=== PATIENT | female | born 1990 | race Hispanic/Latino ===

== ENCOUNTER 2023-03-09 19:01 | Emergency (ER) | payer MEDICAID ==
[~2023-03-09] VITALS: Ht 160 cm; Wt 87.5 kg
[2023-03-09] MEDS ORDERED: ASPIRIN 325MG TAB PO ONE (19:30)
[2023-03-09 19:36] LABS: ABG BASE EXCESS -3.4 mmol/L (-2.0-3.0); ABG HCO3 19.8 mmol/L (21.0-28.0); ABG OXYGEN SATURATION 98.3 % (95.0-99.0); ABG PCO2 31 mmHg (32-45); ABG PH 7.429 (7.350-7.450); CARBON MONOXIDE 0.8; HHb 1.7; PO2, ARTERIAL BG 113.8 mmHg (83.0-108.0); VENT MODE, BG ROOM AIR (ROOM AIR)
[2023-03-09 19:44] LABS: BASOPHILS # (AUTO) 0.02 K/uL (0.00-0.20); BASOPHILS % (AUTO) 0.4 % (0.0-5.0); EOSINOPHILS # (AUTO) 0.06 K/uL (0.00-0.70); EOSINOPHILS % (AUTO) 1.1 % (0.0-8.0); HEMATOCRIT 38.6 % (36-48); IMMATURE GRANULOCYTE ABSOLUTE 0.02 K/uL (0-1); LYMPHOCYTES # (AUTO) 2.3 K/uL (1.0-4.8); LYMPHOCYTES % (AUTO) 41.6 % (21.0-51.0); MEAN CORPUSCULAR HEMOGLOBIN 25.5 pg (27.0-33.0); MEAN CORPUSCULAR HGB CONC 33.4 g/dL (32.0-36.0); MEAN CORPUSCULAR VOLUME 76.3 fL (79-99); MONOCYTES # (AUTO) 0.5 K/uL (0.1-1.0); MONOCYTES % (AUTO) 8.6 % (3.0-13.0); NEUTROPHILS # (AUTO) 2.6 K/uL (1.8-7.7); NEUTROPHILS % (AUTO) 47.9 % (40.0-77.0); PLATELET COUNT (AUTO) 241 K/uL (130-400); RED BLOOD CELL COUNT(AUTO) 5.06 MIL/uL (4.00-5.50); RED CELL DISTRIBUTION WIDTH 12.6 % (11.0-15.5); WHITE BLOOD COUNT (AUTO) 5.5 K/uL (4.8-10.8)
[2023-03-09 19:53] LABS: AMPHET/METH SCREEN,URINE NEGATIVE (NEGATIVE); BARBITURATE SCREEN, URINE NEGATIVE (NEGATIVE); BENZODIAZEPINES SCREEN,URINE NEGATIVE (NEGATIVE); CANNABINOID SCREEN,URINE NEGATIVE (NEGATIVE); COCAINE SCREEN,URINE NEGATIVE (NEGATIVE); OPIATE SCREEN,URINE NEGATIVE (NEGATIVE); PHENCYCLIDINE SCREEN,URINE NEGATIVE (NEGATIVE)
[2023-03-09] MEDS ORDERED: INSULIN LISPRO 100 UNIT/ML 3ML SQ ONE (20:00)
[2023-03-09] MEDS ORDERED: 0.9%NACL 1000ML 2,500 ML IV ONE (20:00)
[2023-03-09 20:04] LABS: INR < 0.93 (0.85-1.15); PROTHROMBIN TIME 9.8 SEC (9.6-11.6)
[2023-03-09 20:06] LABS: B-TYPE NATRIURETIC PEPTIDE 19 pg/mL (0-100)
[2023-03-09 20:15] LABS: APPEARANCE,URINE CLEAR (CLEAR); BILIRUBIN,URINE NEGATIVE (NEGATIVE); COLOR,URINE COLORLESS (YELLOW); GLUCOSE, URINE (UA) >=1000 mg/dL (NEGATIVE); KETONES,URINE 5 mg/dL (NEGATIVE); LEUKOCYTE ESTERASE ,URINE NEGATIVE Leu/uL (NEGATIVE); NITRATE,URINE NEGATIVE (NEGATIVE); OCCULT BLOOD,URINE NEGATIVE (NEGATIVE); PROTEIN,URINE NEGATIVE (NEGATIVE); UROBILINOGEN,URINE 0.2 mg/dL (0.2-1.0)
[2023-03-09 20:22] LABS: ADD UA MICROSCOPIC YES
[2023-03-09 20:24] LABS: ALCOHOL, BLOOD < 3 mg/dL (0-10)
[2023-03-09 20:30] LABS: INFLUENZA TYPE A Negative For Type A (NEGATIVE); INFLUENZA TYPE B Negative For Type B (NEGATIVE)
[2023-03-09 20:33] LABS: ALBUMIN 3.2 g/dL (3.5-5.0); BILIRUBIN,TOTAL 0.3 mg/dL (0.2-1.0); CREATININE 0.9 mg/dL (0.5-1.5); TOTAL PROTEIN, SERUM 7.3 g/dL (6.0-8.3)
[2023-03-09 20:47] LABS: SQUAMOUS EPITHELIAL CELL,UR RARE /HPF (0-2); WBC,URINE 0-1 /HPF (0-1)
[2023-03-09 22:08] VITALS: BP 119/62; PULSE 99; RESP 14; O2SAT 98
[2023-03-09] MEDS ORDERED: ASPI-1005 PO (23:12)
== END 2023-03-09 23:27 | disposition left against medical advice (07) ==
LOC: EDH 19:01
DX: E11.65 Type 2 diabetes mellitus with hyperglycemia (principal); R79.89 Other specified abnormal findings of blood chemistry; E86.0 Dehydration; R07.89 Other chest pain; R10.2 Pelvic and perineal pain; I10 Essential (primary) hypertension; Z79.4 Long term (current) use of insulin
CPT/HCPCS: 99285; 96360; 71045; 96361; 82947; 82550; 84484; 80053; 82803; 83880; 80305; 84703; 85025; 85610; 87040 ×2; 87804 ×2; 83605 ×2; 83930; 82010; 36415; 93005; 36600; 96372; 82435; 84132; 84295; 85018; 82948; 81001; J7030